=== PATIENT | female | born 1985 | race Caucasian/White ===

== ENCOUNTER 2019-01-12 05:31 | Inpatient (IN) | payer OTHER ==
[~2019-01-12] VITALS: Ht 167.6 cm; Wt 138.3 kg
--- NOTE | 2019-01-12 05:38 | ER Report ---
History and Physical Time Seen By MD: 05:33 HPI/ROS CHIEF COMPLAINT: Shortness of breath HISTORY OF PRESENT ILLNESS: 33-year-old female presents to the ER complaining of shortness of breath since 4 AM. Patient started getting sick on Saturday at work. 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 She began with a dry cough. She woke up on Saturday morning with a high fever. She was seen at urgent care and had rapid influenza which was negative. But they felt she still had a to treated her anyways. Patient's continued to have fevers. REVIEW OF SYSTEMS: Respiratory: As above Cardiovascular: No chest pain, no palpitations. Gastrointestinal: No vomiting, no abdominal pain. Musculoskeletal: No back pain. Allergies: Coded Allergies: No Known Drug Allergies (Unverified , 01/12/19) Home Meds Reported Medications Oseltamivir Phosphate (TAMIFLU) 75 Mg Cap, 75 MG FT, CAP 01/12/19 Benzonatate 100 Mg Cap (TESSALON PERLE 100 MG CAP) 100 Mg Capsule, 100 MG PO TID , #15 CAP 01/12/19 Reviewed Nurses Notes: Yes Old Medical Records Reviewed: Yes Constitutional Vital Sign - Last 24 Hours 01/12/19 01/12/19 01/12/19 01/12/19 05:35 05:35 05:45 05:51 Temp 99.6 Pulse 123 115 Resp 20 B/P (MAP) 158/106 158/106 (123) 155/105 (122) Pulse Ox 91 92 O2 Delivery Room Air 01/12/19 01/12/19 01/12/19 01/12/19 06:00 06:11 06:31 06:33 Pulse 123 90 B/P (MAP) 156/88 (110) 120/72 (88) Pulse Ox 93 91 01/12/19 01/12/19 01/12/19 01/12/19 06:51 07:00 07:11 07:16 Pulse 102 105 101 Resp 20 25 0 B/P (MAP) 135/112 (120) Pulse Ox 92 89 89 01/12/19 01/12/19 07:30 07:36 Pulse 103 Resp 37 B/P (MAP) 103/92 (96) Pulse Ox 89 Intake and Output 01/12/19 01/12/19 01/13/19 15:00 23:00 07:00 Intake Total 1125 ml Balance 1125 ml Physical Exam General Appearance: The patient is alert, has no immediate need for airway protection and no current signs of toxicity. Moderate shortness of breath, vital signs stable, pulse ox 91%, tachycardic, tachypneic HEENT: Pupils equal and round no injection. TMs normal, oropharynx without redness or exudate Respiratory: Chest is non tender, lungs are clear to auscultation., No wheezing or rails Cardiac: regular rate and rhythm Gastrointestinal: Abdomen is soft and non tender, no masses, bowel sounds normal. Musculoskeletal: Neck: Neck is supple and non tender. Extremities have full range of motion and are non tender. No edema, no calf tenderness Skin: No rashes or lesions. DIFFERENTIAL DIAGNOSIS: After history and physical exam differential diagnosis was considered for shortness of breath including but not limited to pulmonary infectious process, COPD, asthma, pulmonary embolus and congestive heart failure. Medical Decision Making Data Points Result Diagram: 01/12/19 0612 01/12/19 0612 Laboratory Hematology Test 01/12/19 06:12 01/12/19 06:29 Red Blood Count 5.25 M/uL (4.17-5.56) Mean Corpuscular Volume 84.6 fL (80.0-96.0) Mean Corpuscular Hemoglobin 28.5 pg (26.0-33.0) Mean Corpuscular Hemoglobin Concent 33.7 g/dL (32.0-36.0) Red Cell Distribution Width 13.2 % (11.5-14.5) Mean Platelet Volume 8.2 fL (7.2-11.1) Neutrophils (%) (Auto) 74.7 % (39.4-72.5) Lymphocytes (%) (Auto) 20.3 % (17.6-49.6) Monocytes (%) (Auto) 3.9 % (4.1-12.4) Eosinophils (%) (Auto) 0.6 % (0.4-6.7) Basophils (%) (Auto) 0.5 % (0.3-1.4) Nucleated RBC Relative Count (auto) 0.0 /100WBC Neutrophils # (Auto) 3.9 K/uL (2.0-7.4) Lymphocytes # (Auto) 1.1 K/uL (1.3-3.6) Monocytes # (Auto) 0.2 K/uL (0.3-1.0) Eosinophils # (Auto) 0.0 K/uL (0.0-0.5) Basophils # (Auto) 0.0 K/uL (0.0-0.1) Nucleated RBC Absolute Count (auto) 0.00 K/uL Sodium Level 137 mmol/L (137-145) Potassium Level 3.5 mmol/L (3.5-5.0) Chloride Level 105 mmol/L (98-107) Carbon Dioxide Level 21 mmol/L (22-31) Blood Urea Nitrogen 11 mg/dl (7-18) Creatinine 0.90 mg/dl (0.52-1.04) Glomerular Filtration Rate Calc > 60.0 Random Glucose 132 mg/dl (75-110) Lactate 1.4 mmol/L (0.7-2.1) Calcium Level 8.5 mg/dl (8.4-10.2) Total Bilirubin 0.2 mg/dl (0.2-1.3) Aspartate Amino Transf (AST/SGOT) 34 U/L (0-35) Alanine Aminotransferase (ALT/SGPT) 39 U/L (0-56) Alkaline Phosphatase 99 U/L (0-126) Total Protein 7.7 g/dl (6.3-8.2) Albumin 4.3 g/dl (3.5-5.0) Influenza Virus Type A (PCR) Negative (NEGATIVE) Influenza Virus Type B (PCR) Negative (NEGATIVE) Chemistry Test 01/12/19 06:12 01/12/19 06:29 White Blood Count 5.2 k/uL (4.5-11.0) Red Blood Count 5.25 M/uL (4.17-5.56) Hemoglobin 15.0 g/dL (12.0-16.0) Hematocrit 44.4 % (34.0-47.0) Mean Corpuscular Volume 84.6 fL (80.0-96.0) Mean Corpuscular Hemoglobin 28.5 pg (26.0-33.0) Mean Corpuscular Hemoglobin Concent 33.7 g/dL (32.0-36.0) Red Cell Distribution Width 13.2 % (11.5-14.5) Platelet Count 279 K/uL (150-450) Mean Platelet Volume 8.2 fL (7.2-11.1) Neutrophils (%) (Auto) 74.7 % (39.4-72.5) Lymphocytes (%) (Auto) 20.3 % (17.6-49.6) Monocytes (%) (Auto) 3.9 % (4.1-12.4) Eosinophils (%) (Auto) 0.6 % (0.4-6.7) Basophils (%) (Auto) 0.5 % (0.3-1.4) Nucleated RBC Relative Count (auto) 0.0 /100WBC Neutrophils # (Auto) 3.9 K/uL (2.0-7.4) Lymphocytes # (Auto) 1.1 K/uL (1.3-3.6) Monocytes # (Auto) 0.2 K/uL (0.3-1.0) Eosinophils # (Auto) 0.0 K/uL (0.0-0.5) Basophils # (Auto) 0.0 K/uL (0.0-0.1) Nucleated RBC Absolute Count (auto) 0.00 K/uL Glomerular Filtration Rate Calc > 60.0 Lactate 1.4 mmol/L (0.7-2.1) Calcium Level 8.5 mg/dl (8.4-10.2) Total Bilirubin 0.2 mg/dl (0.2-1.3) Aspartate Amino Transf (AST/SGOT) 34 U/L (0-35) Alanine Aminotransferase (ALT/SGPT) 39 U/L (0-56) Alkaline Phosphatase 99 U/L (0-126) Total Protein 7.7 g/dl (6.3-8.2) Albumin 4.3 g/dl (3.5-5.0) Influenza Virus Type A (PCR) Negative (NEGATIVE) Influenza Virus Type B (PCR) Negative (NEGATIVE) Microbiology Microbiology Date/Time Source Procedure Growth Status 01/12/19 06:34 Blood Peripheral Draw Blood Culture - Preliminary NO GROWTH SO FAR, SET LATE. REINCUBATED Resulted 01/12/19 06:12 Blood Peripheral Draw Blood Culture - Preliminary NO GROWTH SO FAR, SET LATE. REINCUBATED Resulted EKG/Imaging Imaging X-ray: Two-view chest x-ray was obtained. I viewed the images myself on the PACS system. My interpretation of the images is: There are bilateral infiltrates consistent with pneumonia. The radiologist interpretation had no clinically significant variation from this interpretation. ED Course/Re-evaluation Clinical Indication for ER IV: Hydration, IV Access ED Course Patient was admitted to an examination room. H&P was done. The differential diagnoses was considered. On clinical examination. Patient with severe shortness of breath. She is hypoxic with exertion. On arrival, she is at 86% on resting and controlling her respiratory rate, her saturations hover at 90%, 89 occasionally. She is tachycardic, febrile 99.6. She's been running fevers for 6 days now. She was seen at urgent care and started on Tamiflu last day. A chest x-ray shows bilateral infiltrates, left upper and right lower. She is treated with an albuterol nebulizer with little improvement of her condition. A peripheral IV is established. Blood cultures are drawn. Diagnostic studies are added, as well as a lactate. Patient will be adminis tered 2 g of Rocephin. Decision to Disposition Date: Jan 12, 2019 Decision to Disposition Time: 06:05 Depart Departure Latest Vital Signs Vital Signs Date Time Temp Pulse Resp B/P (MAP) Pulse Ox O2 Delivery O2 Flow Rate FiO2 01/12/19 07:36 103 37 89 01/12/19 07:30 103/92 (96) 01/12/19 05:35 99.6 Room Air Impression: Primary Impression: Bilateral pneumonia Condition: Improved Disposition: Admitted from ER Problem Qualifiers Primary Impression: Bilateral pneumonia Pneumonia type: due to unspecified organism Lung location: unspecified part of lung Qualified Codes: J18.9 - Pneumonia, unspecified organism MIKAYLA KHAN DO Jan 12, 2019 05:38
[2019-01-12] MEDS ORDERED: ALBUTEROL 2.5 MG/3 ML NEB NEB ONE (05:40)
[2019-01-12] MEDS ORDERED: OSE75 FT (05:50)
[2019-01-12] MEDS ORDERED: BENZ100C4 PO (05:50)
[2019-01-12] MEDS ORDERED: NS(*) 0.9% 1000 ML BAG 1,000 ML IV ONE ×2 (06:05→07:35)
[2019-01-12] MEDS ORDERED: cefTRIAXone 2 GM VIAL IVP ONE (06:10)
[2019-01-12] MEDS ORDERED: ONDANSETRON 4 MG/2 ML VIAL IVP ONE ×2 (06:25→07:35)
--- NOTE | 2019-01-12 06:28 | RADIOLOGY IMAGING REPORT ---
[place] [facility] [place] Karen Shukla : 1985 MR: [id number] V: [id number] EXAM DATE: ORDERING PHYSICIAN: MIKAYLA KHAN TECHNOLOGIST: Location: [facility] Patient: Karen Shukla : 1985 Visit/Account:[id number] Date of Sevice: 01/12/2019 CHEST PA LAT HISTORY: Fever. Dyspnea. COMPARISON: 10/23/2013. TECHNIQUE: PA and lateral views of the chest. FINDINGS: Pulmonary/pleura: There are infiltrates in the bilateral upper lobes and the right lower lobe. There is no pneumothorax or pleural effusion. Cardiomediastinal: Cardiac and mediastinal silhouettes are within normal limits. Bones/soft tissues: No acute osseous abnormality. There is mild degenerative change of the spine. The visible abdomen is normal. IMPRESSION: 1. Multifocal infiltrates, compatible with pneumonia. Report Dictated By: Romelia Chang at 01/12/2019 6:21 AM Report E-Signed By: Romelia Chang at 01/12/2019 6:24 AM WSN:[id number]
[2019-01-12 06:30] LABS: PLATELET COUNT, AUTOMATED 279 K/uL (150-450)
[2019-01-12] MEDS ORDERED: AZITHROMYCIN(*) 500 MG 500 MG in NS(*) 0.9% 250 ML BAG 250 ML IVPB ONE (07:15)
[2019-01-12 08:23] VITALS: BP 130/84
[2019-01-12] MEDS ORDERED: ALBUTEROL 2.5 MG/3 ML NEB NEB PRN (09:55)
--- NOTE | 2019-01-12 09:57 | History & Physical ---
History of Present Illness Chief Complaint Shortness of breath History of Present Illness This patient presented to the emergency room complaining of shortness of breath, cough, and fever over the last week. She reports that her symptoms have been progressively worsening. History Problems: (1) No significant past medical history Home Meds Reported Medications Oseltamivir Phosphate (TAMIFLU) 75 Mg Cap, 75 MG FT, CAP 01/12/19 Benzonatate 100 Mg Cap (TESSALON PERLE 100 MG CAP) 100 Mg Capsule, 100 MG PO TID, #15 CAP 01/12/19 Allergies: Coded Allergies: No Known Drug Allergies (Unverified , 01/12/19) Hx Alcohol Use: Yes (occ. once a month) Review of Systems All Systems Reviewed/Normal: Yes, Except as Noted Constitutional: Fever Respiratory: Shortness of Breath, Cough Exam Vital Signs Vital Signs Date Time Temp Pulse Resp B/P (MAP) Pulse Ox O2 Delivery O2 Flow Rate FiO2 01/12/19 08:23 99.7 100 22 130/84 (99) 96 Nasal Cannula 2.0 Neuro: No Gross deficits Eyes: PERRLA Cardiovascular: Regular Rate and Rhythm Respiratory: Clear to Auscultation Extremities: No Edema Integumentary: No Cyanosis Medical Decision Making Data Points Result Diagram: 01/12/19 0612 01/12/19 0612 Assessment and Plan Problems: (1) Bilateral pneumonia Status: Acute Assessment & Plan: Her chest x-ray did show bilateral infiltrates. She has been started on empiric treatment with ceftriaxone and azithromycin. Cultures are pending. Venous Thromboembolism Antithrombotics Is Pt On Any Antithrombotics?: No Exam Sepsis Risk: No Definite Risk Problem Qualifiers (1) Bilateral pneumonia: Pneumonia type: due to unspecified organism Lung location: unspecified part of lung Qualified Codes: J18.9 - Pneumonia, unspecified organism COLE HSIEH DO Jan 12, 2019 09:57
[2019-01-12] MEDS: ALBUTEROL 2.5 MG/3 ML NEB NEB SCH ×2 (10:53→17:32)
--- NOTE | 2019-01-12 10:56 | Antimicrobial Stewardship ---
Antimicrobial Stewardship Empiricly appropriate: Yes (CAP ) Significant PMH: Yes Support empiric regimen: Yes (Azithromycin + Ceftriaxone) Approriate Cultures done: Yes (Blood Cx x 2 - NGTD) Organism identified: Yes (Influenza (-) at urgent care, Influenza (-) here) IV to PO Opportunity: No Comment Pt continues to be febrile, admitted 01/12/19, continue IV anbiotics until afebrile x 24 h Determine cumulative duration: Today is Day 1 Determine standard duration: Total Duration = 5 days, Comment 33 yo F who presented to the ED with SOB, cough, fever with progressive worsening over the last few days. Seen at urgent care on , started on Tamiflu despite a (-) influenza test. Tmax 99.7 WBC wnl Lactate 1.4 Influenza (-) Chest xray: bilateral infiltrates, pneumoniaj Plan azithromycin + Ceftriaxone x 5 days. Can transition to PO when afebrile x 24h. Continue treatment as written. Gayle Hoover, PharmD, BCOP GAYLE HOOVER Jan 12, 2019 10:56
[2019-01-12] MEDS: guaiFENesin/CODEINE 5 ML UDBTL PO PRN ×2 (11:14→21:02)
[2019-01-12 11:24] VITALS: BP 138/85
[2019-01-12] MEDS: ACETAMINOPHEN 500 MG TAB PO PRN ×2 (11:36→18:24)
[2019-01-12 15:33] VITALS: BP 142/77
[2019-01-12] MEDS ORDERED: NS(*) 0.9% 500 ML BAG 500 ML IV PRN (15:55)
[2019-01-12 18:49] VITALS: BP 147/96
[2019-01-12 23:24] VITALS: BP 134/72
[2019-01-13 03:09] VITALS: BP 136/86
[2019-01-13] MEDS: guaiFENesin/CODEINE 5 ML UDBTL PO PRN ×3 (04:34→20:49)
[2019-01-13] MEDS: ALBUTEROL 2.5 MG/3 ML NEB NEB SCH ×2 (05:14→10:55)
[2019-01-13] MEDS: cefTRIAXone 2 GM VIAL IVP SCH (05:48)
[2019-01-13] MEDS: AZITHROMYCIN(*) 500 MG 500 MG in NS(*) 0.9% 250 ML BAG 250 ML IV SCH (06:27)
[2019-01-13] MEDS ORDERED: AZITHROMYCIN(*) 500 MG 500 MG in NS(*) 0.9% 250 ML BAG 250 ML IVPB SCH (07:00)
[2019-01-13 08:20] VITALS: BP 128/78
[2019-01-13] MEDS: ACETAMINOPHEN 500 MG TAB PO PRN ×2 (08:28→20:48)
[2019-01-13 09:01] VITALS: Ht 167.6 cm; Wt 138.3 kg
--- NOTE | 2019-01-13 09:37 | Hospitalist Progress Note ---
Subjective Progress Notes Subjective She was admitted with bilateral pneumonia. She reports she does not feel well today. Has c/o cough, headache. She is still requiring 1L of oxygen. Patient Complains of: Cardiovascular: No: Chest Pain Respiratory: Cough, Congestion; No: Shortness of Breath Physical Exam Vital Signs Date Time Temp Pulse Resp B/P (MAP) Pulse Ox O2 Delivery O2 Flow Rate FiO2 01/13/19 08:20 99.7 90 24 128/78 (95) 93 Nasal Cannula 1.0 Intake and Output 01/13/19 07:00 Intake Total 3625 ml Balance 3625 ml Intake Oral 1950 ml IV Total 1675 ml # Voids 3 General Appearance: Alert, Awake, No Acute Distress, Afebrile Neuro: No Gross deficits Cardiovascular: Regular Rate and Rhythm Respiratory: No Respiratory Distress, Other (crackles to bilateral bases, no wheezing) Psych: Alert & Oriented X3, Appropriate Mood & Affect Result Diagram: 01/12/1961101/12/19611 Assessment and Plan Problems: (1) Bilateral pneumonia Status: Acute Assessment & Plan: Her chest x-ray did show bilateral infiltrates. She has been started on empiric treatment with ceftriaxone and azithromycin. Cultures pending show no growth. She is receiving supplemental oxygen. Exam Sepsis Risk: No Definite Risk Problem Qualifiers (1) Bilateral pneumonia: Pneumonia type: due to unspecified organism Lung location: unspecified part of lung Qualified Codes: J18.9 - Pneumonia, unspecified organism MICKEY ORTIZ [facility] Jan 13, 2019 09:37
[2019-01-13] MEDS ORDERED: INFLUENZA VIRUS VAC 0.5ML SYR IM ONLY ONE (09:55)
[2019-01-13 11:49] VITALS: BP 147/85
[2019-01-13 16:20] VITALS: BP 139/86
[2019-01-13] MEDS: LEVALBUTEROL 0.63 MG/3 ML NEB NEB SCH (17:06)
[2019-01-13 18:42] VITALS: BP 139/73
[2019-01-13] MEDS ORDERED: MELATONIN 3 MG TAB PO SCH (21:00)
[2019-01-14 00:02] VITALS: BP 136/71
[2019-01-14] MEDS: LEVALBUTEROL 0.63 MG/3 ML NEB NEB SCH ×2 (04:59→11:03)
[2019-01-14 06:25] LABS: PLATELET COUNT, AUTOMATED 279 K/uL (150-450)
[2019-01-14] MEDS: guaiFENesin/CODEINE 5 ML UDBTL PO PRN (06:25)
[2019-01-14] MEDS: AZITHROMYCIN(*) 500 MG 500 MG in NS(*) 0.9% 250 ML BAG 250 ML IV SCH (06:30)
[2019-01-14] MEDS: cefTRIAXone 2 GM VIAL IVP SCH (06:30)
[2019-01-14 08:54] VITALS: BP 128/88
[2019-01-14] MEDS ORDERED: ROBC PO (10:42)
[2019-01-14] MEDS ORDERED: LEVA0.6320 NEB (10:42)
[2019-01-14] MEDS ORDERED: AZIT-1 PO (10:42)
[2019-01-14] MEDS ORDERED: CEF300 PO (10:42)
--- NOTE | 2019-01-14 10:47 | Hospitalist Depart ---
Discharge Summary Reason for Hosp/Final Diag: (1) Bilateral pneumonia Status: Acute Hospital Course & Plan: Her chest x-ray did show bilateral infiltrates. She was started on empiric treatment with ceftriaxone and azithromycin. Blood cultures show no growth. She has been receiving supplemental oxygen. She reports improvement in symptoms, but is still requiring oxygen. She will go home with oxygen, she will require 1L during the daytime, 2L at night. She will be transitioned to Omnicef and oral Azithromycin. She will get cough syrup and nebulizers to use at home. She will follow up with PCP on Saturday to get himanshu urenace to return to work. Departure Latest Vital Signs Vital Signs 01/14/19 10:15 Pulse Ox 83 Weight (Pounds): 305 Result Diagram: 01/14/1960001/14/19600 Condition: Improved Discharge: Home, Self Care Discharge Instructions Home Meds Active Scripts Cefdinir 300 Mg Cap (OMNICEF 300 MG CAP (OR EQUIV)) 300 Mg Cap, 300 MG PO BID, #10 CAP Prov:MICKEY ORTIZ [facility] 01/14/19 Levalbuterol Hcl (XOPENEX) 0.63 Mg/3 Ml Vial.neb, 0.63 MG NEB TIDR PRN for SHORTNESS OF BREATH, #60 VIAL Prov:MICKEY ORTIZ [facility] 01/14/19 Guaifenesin/Codeine (GUAIFENESIN-CODEINE SYRUP) 5 Ml Syrp, 5 ML PO Q4-6H PRN for COUGH, #120 ML Prov:MICKEY ORTIZ [facility] 01/14/19 Azithromycin (ZITHROMAX) 250 Mg Tablet, 1 TAB PO QDAY, #3 TAB Prov:MICKEY ORTIZ [facility] 01/14/19 Reported Medications Benzonatate 100 Mg Cap (TESSALON PERLE 100 MG CAP) 100 Mg Capsule, 100 MG PO TID, #15 CAP 01/12/19 Discontinued Reported Medications Oseltamivir Phosphate (TAMIFLU) 75 Mg Cap, 75 MG FT, CAP 01/12/19 Diet: Regular Activity: As Tolerated Special Instructions: Take antibiotics until gone. Use cough syrup as needed. Wear 1L oxygen during day, 2L at night. Use nebulizers as needed for Shortness of breath. Continue flutter therapy at home. Follow up with PCP on [place] to get clearance to return to work. Copies to: TENNILLE MONREAL DNP, [employer] ; Venous Thromboembolism Antithrombotics Is Pt On Any Antithrombotics?: No Problem Qualifiers (1) Bilateral pneumonia: Pneumonia type: due to unspecified organism Lung location: unspecified part of lung Qualified Codes: J18.9 - Pneumonia, unspecified organism MICKEY ORTIZ [employer] Jan 14, 2019 10:47
[2019-01-14] MEDS ORDERED: LEVALBUTEROL 15 GM INH INH PRN (11:30)
== END 2019-01-14 12:05 | disposition home or self-care (01) | DRG 195 ==
LOC: ER 05:41 → MED 07:42
PROVIDERS: ADMIT Family Medicine; ATTEND Family Medicine
DX: J18.9 Pneumonia, unspecified organism (principal)
CPT/HCPCS: 36415; 71046; 82040; 82247; 82310; 82374; 82435; 82565; 82947; 83605; 84075; 84132; 84155; 84295; 84450; 84460; 84520; 85025; 87040; 87502; 94640; 94667; 94668; 96361; 96374; 96375; 96376; 99285; J0456; J0696; J2405; J7030; J7040; J7050; J7613; J7614

== ENCOUNTER → 2019-02-11 | Outpatient (CLI) | payer OTHER ==
[2019-01-13 09:01] VITALS: BMI 49.2
[~2019-02-11] MED LIST: AZIT-1 PO; BENZ100C4 PO; BENZ200C15 PO; CEF300 PO; LEVA0.6320 NEB; OSE75 FT; ROBC PO; Return to Work
--- NOTE | 2019-02-11 14:21 | RADIOLOGY IMAGING REPORT ---
[place] [facility] [place] NAME: Karen Shukla : 1985 MR: [id number] V: [id number] EXAM DATE: ORDERING PHYSICIAN: ANABELLA ALLEN TECHNOLOGIST: Location: [facility] Patient: Karen Shukla : 1985 Visit/Account:[id number] Date of Sevice: 02/11/2019 Chest with lateral, two views. HISTORY: Bilateral pneumonia. COMPARISON: 01/12/2019. Mild bronchial thickening is present bilaterally. Bilateral lung infiltrates have resolved compared to previous. The heart and mediastinum are unremarkable. Pulmonary vessels are unremarkable. The l ungs are otherwise clear. The pleural surfaces are unremarkable. No pneumothorax. The bones are unre markable. IMPRESSION: Mild bronchial thickening. Resolution of bilateral lung infiltrates. Report Dictated By: Mikey Chaidez MD at 02/11/2019 2:15 PM Report E-Signed By: Mikey Chaidez MD at 02/11/2019 2:17 PM WSN:[id number]
== END ==
LOC: RAD 13:50
PROVIDERS: ATTEND Nurse Practitioner Family
DX: J18.9 Pneumonia, unspecified organism (principal)
CPT/HCPCS: 71046